=== PATIENT | male | born 1990 ===

== ENCOUNTER 2017-08-20 17:12 | Emergency (ER) | payer BC, MEDICAID ==
[2017-08-20 17:25] VITALS: BP 134/89; PULSE 96; RESP 18; TEMP 97.9; O2SAT 97; BMI 24.3
--- NOTE | 2017-08-20 18:37 | RAD ---
PROCEDURE: Bilateral hands dated 08/20/2017 HISTORY: Injury- pain to bilateral thumbs COMPARISON: No prior study available for comparison. FINDINGS: BONES: The current study reveals a mildly displaced intra-articular avulsion fracture of the base proximal phalanx right thumb (gamekeeper's thumb) which is typically involves ulnar collateral ligament anterior injury. . No other acute displaced fractures nor dislocation. The osseous structures appear intact. No radiopaque foreign bodies. IMPRESSION: There is an intra-articular avulsion fracture base proximal phalanx right thumb (gamekeeper's thumb as described.
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
== END 2017-08-20 18:56 | disposition home or self-care (01) ==
LOC: C.ER 17:12
DX: S62.511A Displaced fracture of proximal phalanx of right thumb, initial encounter for closed fracture (principal); V19.3XXA Pedal cyclist (driver) (passenger) injured in unspecified nontraffic accident, initial encounter; Y93.55 Activity, bike riding; Z72.0 Tobacco use

== ENCOUNTER 2018-02-13 19:14 | Emergency (ER) | payer MEDICAID ==
[2018-02-13] MEDS ORDERED: Lidocaine 1% Inj (20ml) INFIL STA (19:29)
[2018-02-13] MEDS ORDERED: Bacitracin 500 Units/gm Oint Foilpak UD TOP ONE (19:29)
[2018-02-13 19:31] VITALS: TEMP 98.4
[2018-02-13] MEDS ORDERED: Bacitracin 500 Units/gm Oint Foilpak UD ONE (19:34)
[2018-02-13] MEDS ORDERED: Lidocaine Hydrochloride 5 ML INJ ONE (19:34)
--- NOTE | 2018-02-13 20:18 | C.PDOC ---
History Of Present Illness 27 year old male presents to the ED for an evaluation of right third finger laceration sustained prior to arrival. Reports he was using a tomato slicer at work, was pushing the tomato in and cut his finger. Notes he is right hand dominant. Denies any change in sensation. Time Seen by Provider: 02/13/18 19:26 Chief Complaint (Nursing): Upper Extremity Problem/Injury History Per: Patient History/Exam Limitations: no limitations Onset/Duration Of Symptoms: Hrs Current Symptoms Are (Timing): Still Present Past Medical History Reviewed: Historical Data, Nursing Documentation, Vital Signs Vital Signs: Last Vital Signs Temp 98.4 F 02/13/18 19:26 Pulse 77 02/13/18 19:26 Resp 20 02/13/18 19:26 BP 119/76 02/13/18 19:26 Pulse Ox 98 02/13/18 19:26 - Medical History PMH: Asthma, Chronic Kidney Disease (SEE COMMENT) Surgical History: No Surg Hx - [facility] APPLICATION OF SPLINT (11/16/13) Family History: States: No Known Family Hx - Social History Hx Tobacco Use: Yes Hx Alcohol Use: No (''Occasional'') Hx Substance Use: No - Immunization History Hx Tetanus Toxoid Vaccination: Yes Hx Influenza Vaccination: No Hx Pneumococcal Vaccination: No Review Of Systems Skin: Positive for: Other (laceration to right third finger) Neurological: Negative for: Weakness, Numbness Physical Exam - Physical Exam Appears: Non-toxic, No Acute Distress Skin: Warm, Other (1cm lac to dorsal aspect of right third finger DIP) Head: Normacephalic Eye(s): bilateral: Normal Inspection, EOMI Nose: Normal Oral Mucosa: Moist Neck: Normal ROM, Supple Chest: Symmetrical Respiratory: No Accessory Muscle Use Extremity: No Normal ROM (decreased ROM at the DIP joint of right third finger; unable to extend at the DIP ), Capillary Refill (<2 sec), No Deformity, No Swelling Extremity: Bilateral: Normal Color And Temperature Pulses: Left Radial: Normal, Right Radial: Normal Neurological/Psych: Oriented x3, Normal Speech, Normal Motor, Normal Sensation Gait: Steady ED Course And Treatment O2 Sat by Pulse Oximetry: 98 (RA) Pulse Ox Interpretation: Normal - Other Rad XR right hand X-Ray: Viewed By Me, Read By Radiologist Interpretation: Accession No. : [id number]. Patient Name / ID : KRISTY Phillips / [id number]. Exam Date : 02/13/2018 19:33:55 ( Approved ). Study Comment : Sex / Age : M / 27Y. Creator : Ene Quan MD. Dictator : Ene Quan MD. Distance Learning Program Coordinator : Biomathematician : Ene Quan MD. Approver2 : Report Date : 02/13/2018 20:28:26. My Comment : . Date of service: 02/13/2018. PROCEDURE: Right middle finger radiographs. HISTORY: trauma. COMPARISON: Bilateral hand radiographs performed 08/20/17. TECHNIQUE: AP radiograph of the right hand, as well as spot oblique and lateral images of right middle finger were obtained. FINDINGS: RIGHT MIDDLE FINGER: Right third digit appears unremarkable without acute displaced fracture identified. Remainder of the right hand (as seen on the AP view) grossly unremarkable. JOINTS: No dislocation. SOFT TISSUES: Soft tissue swelling. Soft tissue laceration the level of the 3rd DIP. OTHER FINDINGS: None. IMPRESSION: Soft tissue swelling. Soft tissue laceration the level of the 3rd DIP. No acute displaced fracture, dislocation, or significant joint effusion identified. If symptoms persist or if there is continued clinical concern, x-ray follow-up in 7-10 days should be considered. Progress Note: XR of right hand ordered and reviewed - shows no fracture or dislocation. Discussed with patient tendon invovlement with laceration. Instructed strict follow up with hands specialist. Case discussed with Dr. Garrett, Hands Specialist endodontics dentist, who instructed laceration closure and follow up outpatient. Mallet splint applied by ED RN. Laceration - Laceration Repair right third finger Wound Length (In cm): 1cm Description Of Wound: Linear Wound Cleansed With: Betadine, Sterile Saline Anesthesia: Lidocaine 2% Wound Examination: Irrigated With Saline, No FB With Wound Exploration Wound Closure: Suture (2) Suture Technique And Material Used: Interrupted, Nylon (4-0) Wound Complexity: Simple Disposition - Disposition Referrals: Bucky Garrett MD [Staff Provider] - Disposition: HOME/ ROUTINE Disposition Time: 20:18 Condition: STABLE Additional Instructions: Follow up with the hand specialist in 1-2 days. Return to ER if symptoms persist or worsen. 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 - Scribe Statement The provider has reviewed the documentation as recorded by the Scribe Soo Flores All medical record entries made by the Josephibjarrett were at my direction and per sonally dictated by me. I have reviewed the chart and agree that the record accurately reflects my personal performance of the history, physical exam, medical decision making, and the department course for this patient. I have also personally directed, reviewed, and agree with the discharge instructions and disposition.
[2018-02-13 20:29] VITALS: BP 121/74; PULSE 72; RESP 18
[2018-02-13 20:31] VITALS: O2SAT 98
--- NOTE | 2018-02-13 20:32 | RAD ---
Date of service: 02/13/2018 PROCEDURE: Right middle finger radiographs. HISTORY: trauma COMPARISON: Bilateral hand radiographs performed 08/20/17 TECHNIQUE: AP radiograph of the right hand, as well as spot oblique and lateral images of right middle finger were obtained. FINDINGS: RIGHT MIDDLE FINGER: Right third digit appears unremarkable without acute displaced fracture identified. Remainder of the right hand (as seen on the AP view) grossly unremarkable. JOINTS: No dislocation. SOFT TISSUES: Soft tissue swelling. Soft tissue laceration the level of the 3rd DIP. OTHER FINDINGS: None. IMPRESSION: Soft tissue swelling. Soft tissue laceration the level of the 3rd DIP. No acute displaced fracture, dislocation, or significant joint effusion identified. If symptoms persist or if there is continued clinical concern, x-ray follow-up in 7-10 days should be considered.
== END 2018-02-13 20:29 | disposition home or self-care (01) ==
LOC: C.ER 19:14
DX: S56.423A Laceration of extensor muscle, fascia and tendon of right middle finger at forearm level, initial encounter (principal); W27.8XXA Contact with other nonpowered hand tool, initial encounter